=== PATIENT | female | born 1985 | race Caucasian/White ===

== ENCOUNTER 2016-12-22 18:30 | Emergency (ER) | payer MEDICAID ==
[2016-12-22] MEDS ORDERED: AMOXICILLIN 250 MG CAPSULE PO ONE (19:12)
--- NOTE | 2016-12-22 19:14 | ER NURSING DOCUMENTATION ---
Nurse's Notes [facility] Name:Jessenia Cruz Age:31 yrs Sex:Female :1985 Arrival Date:12/22/2016 Time:18:30 Bed1 Private MD:Physician, No Diagnosis:Dental pain Presentation: 12/22 18:43 Presenting complaint: Patient states: C/O right upper "rotten tooth for a couple of rs years". Started bothering her most recently on December 04. States she has had fever, chills, and nausea. Has an appt at [facility] January 25. Transition of care: patient was not received from another setting of care. Notified ED Physician of patient's arrival and CC Dylon Gonzalez notified. 18:43 Acuity: BHAKTI 3 rs 18:43 Method Of Arrival: Private Vehicle rs Triage Assessment: 18:48 General: Appears in no apparent distress, comfortable, well developed, well nourished, rs well groomed, Behavior is cooperative, pleasant. Pain: Complains of pain in right upper tooth Pain does not radiate. Pain currently is 7 out of 10 on a pain scale. Quality of pain is described as aching, throbbing. EENT: Oral mucosa is moist. Throat is clear gums are not erythematous or edematous.. Neuro: No deficits noted. Level of Consciousness is awake, alert, Oriented to person, place, time, event. Cardiovascular: No deficits noted. Capillary refill < 3 seconds Pulses are 3+ in left radial artery. Respiratory: No deficits noted. Respiratory effort is even, unlabored, Respiratory pattern is regular, symmetrical. GI: No deficits noted. Reports nausea, Denies diarrhea, vomiting. Derm: No deficits noted. Skin is pink, warm & dry. 18:48 General: right cheek is edematous. rs Historical: - Allergies: No known drug Allergies; - Home Meds: 1. None - PSHx: None; - Tetanus: unknown. - Ebola Screening: : Patient negative for fever greater than or equal to 101.5 degrees Fahrenheit, and additional compatible Ebola Virus Disease symptoms. Patient denies exposure to infectious person. Patient denies travel to an Ebola-affected area in the 21 days before illness onset. No symptoms or risks identified at this time. . - Immunization history: Unable to Obtain. - Social history: Smoking status: Patient uses tobacco products, current every day smoker. Patient uses alcohol occasionally. Screenin:55 Infectious Disease Risk None. Abuse screen: Denies threats or abuse. Nutritional rs screening: No deficits noted. Assessment: 18:55 See Triage Assessment done by same RN. rs Vital Signs: 18:53 BP 130 / 76; Pulse 87; Resp 20; Temp 97.3; Pulse Ox 98% on R/A; Pain 7/10; rs ED Course: 18:33 Patient arrived in ED. ma1 18:33 Physician, Zohreh is Private Physician. ma1 18:42 Elena Davis, RN is Primary Nurse. rs 18:46 Triage completed. rs 18:50 Keith Osborne MD is Attending Physician. dania 18:51 Private, Dentist is Referral Physician. dania 18:54 Notified ED Physician of patient's arrival and chief complaint. Dr. Osborne notified. Arm rs band placed on Bed in low position Call Light in Reach HOB Elevated Side rails up x1. 18:56 Valuables Remains with patient. Door closed. Noise minimized. Verbal reassurance given. rs Administered Medications: 19:09 Drug: Amoxicillin 500 mg; Route: PO; rs 19:11 Follow up: Response: Dispensed at discharge. rs 19:09 Drug: HYDROcodone-acetaminophen (5mg/325 mg) 1-2 tabs 1 tabs; Route: PO; rs 19:12 Follow up: Response: Dispensed at discharge. rs Outcome: 18:51 Discharge ordered by . 19:12 Discharged to home ambulatory, with friend. rs 19:12 Condition: stable 19:12 Instructed on discharge instructions, follow up and referral plans. medication usage, Demonstrated understanding of instructions, medications, Prescriptions given X 2. 19:13 Patient left the ED. rs Signatures: Elena Davis RN RN Keith Helms MD MD jm Addison, Melissa ma
--- NOTE | 2016-12-22 19:14 | ER PHYSICIAN DOCUMENTATION ---
Physician Documentation [facility] Name:Jessenia Cruz Age:31 yrs Sex:Female :1985 Arrival Date:12/22/2016 Time:18:30 Bed1 Private MD:Physician, No ED Keith Salmeron Disposition: 12/22/16 18:51 Discharged to Home/Self Care. Impression: Dental pain. - Condition is Good. - Discharge Instructions: DENTAL PAIN. - Prescriptions for Amoxicillin 500 mg Oral Capsule - take 1 capsule by ORAL route every 8 hours for 10 days; 30 tablet. Hydrocodone- Acetaminophen 5-325 mg Oral - take 1 tablet by ORAL route every 6 hours As needed; 10 tablet. - Medical Reconciliation form form. - Follow up: Private, Dentist; When: 2 - 3 days; Reason: Continuance of care. - Problem is new. - Symptoms have improved. HPI: 12/22 19:00 This 31 yrs old Female presents to ER via Private Vehicle with complaints of jm Facial Swelling. 19:00 The patient presents with pain. The problem is located in the upper right second molar. jm Onset: The symptom(s)/episode began/occurred today. Associated signs and symptoms: Pertinent negatives: fever. Historical: - Allergies: No known drug Allergies; - Home Meds: 1. None - PSHx: None; - Tetanus: unknown. - Ebola Screening: : Patient negative for fever greater than or equal to 101.5 degrees Fahrenheit, and additional compatible Ebola Virus Disease symptoms. Patient denies exposure to infectious person. Patient denies travel to an Ebola-affected area in the 21 days before illness onset. No symptoms or risks identified at this time. . - Immunization history: Unable to Obtain. - Social history: Smoking status: Patient uses tobacco products, current every day smoker. Patient uses alcohol occasionally. ROS: 19:00 Constitutional: Negative for chills, fatigue, fever. 19:00 ENT: Positive for dental pain. 19:00 Skin: Negative for swelling. Exam: 19:00 Constitutional: The patient appears alert, awake. 19:00 ENT: Mouth: is normal, Posterior pharynx: is normal, Dental exam: dental caries. 20:00 Psych: Behavior/mood is pleasant, cooperative, Affect is calm. Vital Signs: 18:53 BP 130 / 76; Pulse 87; Resp 20; Temp 97.3; Pulse Ox 98% on R/A; Pain 7/10; rs Procedures: 20:00 Nerve block: (dental) of periapical block, Medication: Lidocaine 2% with epinephrine, dania Marcaine 0.5%, Amount: 10 mls were injected, Effect: the patient has resolution of the pain, Set up for procedure. Performed by Keith Osborne MD Patient tolerated well. MDM: 18:42 Patient medically screened. jm 20:00 Differential diagnosis: dental caries. Data reviewed: vital signs, nurses notes, and as jm a result, I will discharge patient. Counseling: I had a detailed discussion with the patient and/or guardian regarding: the historical points, exam findings, and any diagnostic results supporting the discharge/admit diagnosis, the need for outpatient follow up, a dentist. Dispensed Medications: 19:09 Drug: Amoxicillin 500 mg; Route: PO; rs 19:11 Follow up: Response: Dispensed at discharge. rs 19:09 Drug: HYDROcodone-acetaminophen (5mg/325 mg) 1-2 tabs 1 tabs; Route: PO; rs 19:12 Follow up: Response: Dispensed at discharge. rs Signatures: Elena Davis, RN RN Keith Helms MD MD jm
== END 2016-12-22 19:14 | disposition home or self-care (01) ==
LOC: ER 18:30
DX: K08.89 Other specified disorders of teeth and supporting structures (principal); R22.0 Localized swelling, mass and lump, head; K02.9 Dental caries, unspecified
CPT/HCPCS: 64400; 99283